=== PATIENT | female | born 1995 | race Caucasian/White ===

== ENCOUNTER 2017-11-06 10:06 | Emergency (ER) | payer BC ==
--- NOTE | 2017-11-06 10:54 | RAD ---
LEFT WRIST 3 VIEWS: Date: 11/06/17 HISTORY: Emergency exam. COMPARISON: None. FINDINGS: No acute fracture or malalignment. Soft tissues unremarkable. IMPRESSION: No acute fracture or malalignment. POS: [facility]
== END 2017-11-06 12:17 | disposition home or self-care (01) ==
LOC: ERS 10:06
DX: S63.502A Unspecified sprain of left wrist, initial encounter (principal); V43.52XA Car driver injured in collision with other type car in traffic accident, initial encounter
CPT/HCPCS: 29125

== ENCOUNTER 2017-11-13 23:06 | Emergency (ER) | payer BC ==
--- NOTE | 2017-11-14 | RAD ---
TWO VIEWS CHEST: Date: 11-13-17 Provided Clinical History: Cough. FINDINGS: Comparison is made with 09-05-16. Cardiac and mediastinal silhouette is unchanged in appearance. Lungs appear clear. No pleural fluid o r pneumothorax apparent. Right convexity curvature of the thoracic spine is again seen. IMPRESSION: No evidence for acute cardiopulmonary process. POS: [facility]
== END 2017-11-14 00:17 | disposition home or self-care (01) ==
LOC: ERS 23:06
DX: B34.9 Viral infection, unspecified (principal)
CPT/HCPCS: 71046

== ENCOUNTER 2018-03-04 21:36 | Emergency (ER) | payer BC ==
[2018-03-04 22:43] LABS: #Basophils 0.1 thou/uL (0.0-0.2); #Eosinphils 0.1 thou/uL (0.0-0.7); #Lymphocytes 3.2 thou/uL (1.20-3.40); #Monocytes 0.8 thou/uL (0.11-0.59); #Neutrophils 7.4 thou/uL (1.40-6.50); %Basophils 0.6 % (0.0-1.0); %Eosinophils 0.6 % (0.0-10.0); %Lymphocytes 27.5 % (21.0-51.0); %Monocytes 7.2 % (0.0-10.0); %Neutrophils 64.1 % (42.0-75.0); Hemoglobin 13.5 g/dL (12.0-16.0); Mean Corpuscular HGB CONC 33.6 g/dL (32.0-36.0); Mean Corpuscular Volume 98.3 fl (81.0-99.0); Mean Platelet Volume 8.3 fL (7.4-10.4); Platelet Count 248 thou/uL (130-400); Red Blood Cell (RBC) Count 4.09 mill/uL (4.20-5.40); White Blood Cell (WBC) Count 11.6 thou/uL (4.8-10.8)
[2018-03-04 22:59] LABS: ALT (SGPT) 11 U/L (8-55); AST (SGOT) 13 U/L (5-34); Alkaline Phosphatase 51 U/L (40-150); Anion Gap 10 mmol/L (10-20); BUN (Urea Nitrogen) 9 mg/dL (7.0-18.7); Bilirubin, Total 0.4 mg/dL (0.2-1.2); Calc. Creatinine Clearance 0 mL/min (70-130); Calcium 9.6 mg/dL (7.8-10.44); Carbon Dioxide 26 mmol/L (22-29); Chloride 107 mmol/L (98-107); Estimated GFR-MDRD Greater than 90; Globulin 2.7 g/dL (2.4-3.5); Glucose 77 mg/dL (70-105); Protein, Total 6.7 g/dL (6.0-8.3); Sodium 139 mmol/L (136-145)
[2018-03-04 23:03] LABS: CKMB 0.8 ng/mL (0-6.6); Troponin I Less than 0.010 ng/mL (< 0.028)
[2018-03-05] MEDS ORDERED: Ibuprofen 200 MG TAB ONE (01:56)
== END 2018-03-05 02:06 | disposition home or self-care (01) ==
LOC: ERS 21:36
DX: J02.9 Acute pharyngitis, unspecified (principal)
CPT/HCPCS: 36415; 80053; 82553; 84484; 85025; 87081; 87430; 99283